=== PATIENT | male | born 1995 | race Caucasian/White ===

== ENCOUNTER 2021-01-17 16:28 | Emergency (ER) | payer OTHER ==
[~2021-01-17] VITALS: Ht 170.2 cm; Wt 82.1 kg
[2021-01-17 16:41] VITALS: BP 127/84
[2021-01-17] MEDS ORDERED: DIPH25SG5 PO (16:59)
--- NOTE | 2021-01-17 17:02 | NUR ---
25 YEAR OLD MALE COMPLAINS OF LIP SWELLNIG X MORNING. PT DENIES SOB. PT STATES HE BELEIVES IT IS ALLERGIC REACTION FROM CANDY HE ATE. PT AOX4, BREATHING EVEN AND UNLABORED, SKIN WARM AND DRY. BED IN LOWEST POSITION, LOCKED, BED RAIL UPX1. PMH - DENIES ALLERGIES - NKA
[2021-01-17 17:13] VITALS: BP 127/84
--- NOTE | 2021-01-17 17:13 | NUR ---
Patient discharged with v/s stable. Written and verbal after care instructions about food allergy given and explained. Patient alert, oriented and verbalized understanding of instructions. Ambulatory with steady gait. All questions addressed prior to discharge. ID band removed. Patient advised to follow up with PMD. Rx of benadryl given. Patient educated on indication of medication including possible reaction and side effects. Opportunity to ask questions provided and answered.
== END 2021-01-17 17:13 | disposition home or self-care (01) ==
LOC: MED 16:28
DX: K13.0 Diseases of lips (principal); F41.9 Anxiety disorder, unspecified; Z79.899 Other long term (current) drug therapy
CPT/HCPCS: 99282

== ENCOUNTER 2023-12-06 16:54 | Emergency (ER) | payer OTHER ==
[~2023-12-06] VITALS: Ht 170.2 cm; Wt 72.6 kg
[~2023-12-06 16:54] MED LIST: DIPH25SG5 PO
[2023-12-06 17:08] VITALS: BP 115/71; PULSE 102; RESP 18; TEMP 99; O2SAT 98
[2023-12-06] MEDS: ONDANSETRON 4 MG ODT PO ONE (18:38)
[2023-12-06] MEDS: ACETAMINOPHEN EXTRA STRENGTH 500 MG TAB PO ONE (18:39)
[2023-12-06 18:57] LABS: FLU A ANTIGEN negative (NEGATIVE); FLU B ANTIGEN NEGATIVE (NEGATIVE)
[2023-12-06 19:09] LABS: BASOPHILS % (AUTO) 0.2 % (0.0-2.0); EOSINOPHILS % (AUTO) 0.1 % (0.0-4.0); HEMATOCRIT 49.7 % (36-52); HEMOGLOBIN 16.9 g/dL (12.0-18.0); LYMPHOCYTES # (AUTO) 0.4 K/uL (2.0-11.5); LYMPHOCYTES % (AUTO) 3.4 % (20.5-51.1); MEAN CORPUSCULAR HEMOGLOBIN 29 pg (27-31); MEAN CORPUSCULAR HGB CONC 34 g/dL (33-37); MEAN CORPUSCULAR VOLUME 84.7 fL (80-94); MONOCYTES # (AUTO) 0.5 K/uL (0.8-1.0); MONOCYTES % (AUTO) 4.5 % (1.7-9.3); NEUTROPHILS # (AUTO) 10.3 K/uL (1.8-7.7); NEUTROPHILS % (AUTO) 91.8 % (42.2-75.2); PLATELET COUNT (AUTO) 196 K/uL (140-450); RED BLOOD CELL COUNT(AUTO) 5.87 MIL/uL (4.20-6.10); RED CELL DISTRIBUTION WIDTH 13.7 % (11.6-13.7); WHITE BLOOD COUNT (AUTO) 11.2 K/uL (4.8-10.8)
[2023-12-06 19:30] LABS: APPEARANCE,URINE CLEAR (CLEAR); BILIRUBIN,URINE NEGATIVE (NEGATIVE); BLOOD, URINE NEGATIVE (NEGATIVE); COLOR,URINE YELLOW (YELLOW); LEUKOCYTE ESTERASE ,URINE NEGATIVE (NEGATIVE); NITRITE, URINE NEGATIVE (NEGATIVE); PROTEIN,URINE NEGATIVE (NEGATIVE); UGLUCOSE NEGATIVE (NEGATIVE); UROBILINOGEN,URINE 0.2 EU/dL (0.2 - 1)
[2023-12-06 19:32] LABS: ALBUMIN 4.6 g/dL (3.4-5.0); CALCIUM 8.8 mg/dL (8.5-10.1); CREATININE 1.1 mg/dL (0.6-1.3); THYROID STIMULATING HORMONE 0.27 uIU/mL (0.34-3.74); TOTAL BILIRUBIN 1.4 mg/dL (0.0-1.0); TOTAL PROTEIN, SERUM 7.9 g/dL (6.4-8.2)
== END 2023-12-06 19:56 | disposition home or self-care (01) ==
LOC: MED 16:54
DX: R51.9 Headache, unspecified (principal); R94.6 Abnormal results of thyroid function studies; M79.10 Myalgia, unspecified site; R53.83 Other fatigue; R53.81 Other malaise; Z20.822 Contact with and (suspected) exposure to COVID-19; Z79.899 Other long term (current) drug therapy
CPT/HCPCS: 36415; 80053; 81003; 82550; 84443; 85025; 87426; 87804; 99283; Q0162